=== PATIENT | female | born 1970 | race Caucasian/White ===

== ENCOUNTER 2017-03-15 12:14 | Emergency (ER) | payer BC, OTHER ==
[~2017-03-15] VITALS: Ht 160 cm; Wt 62.0 kg
[~2017-03-15 12:14] MED LIST: IBUP800T23 PO; METH750T2 PO
[2017-03-15 12:19] VITALS: BP 149/74; PULSE 99; RESP 18; TEMP 98.2; O2SAT 98
[2017-03-15] MEDS ORDERED: SODIUM CHLOR 0.9% 1000 ML INJ 1,000 ML IV ONE (12:32)
--- NOTE | 2017-03-15 12:42 | PD ---
HPI Chief Complaint: GI Complaint Time Seen by Provider: 12:24 Travel History International Travel<30 days: No Contact w/Intl Traveler<30days: No Traveled to known affect area: No History of Present Illness HPI 46-year-old female presents to the emergency department for evaluation of abdominal cramping, diarrhea that started on Monday, 2 days ago. Patient states that she was recently on antibiotics, doxycycline, for bronchitis. She stopped these antibiotics on , 6 days ago. Patient states that she ate out at a restaurant on Monday night with her . He had one large bowel movement and a lot of gas, but has not had her same symptoms. She states he has been fine since Monday night. She reports 9 bowel movements today. She denies blood in her stool. She states she will get an cramping in her upper abdomen and then will have to go to the bathroom. Patient denies any radiation of the pain. She denies any urinary symptoms. She states she has not had these symptoms before. She believes she ran a fever Monday and Monday due to chills, but did not check her temperature. She states she has not had chills today. Patient reports history of hysterectomy, appendectomy, ovarian cysts. She is not currently on any prescribed medications and has no chronic medical problems. She does report a headache, stating she has been unable to have any caffeine for the past 3 days. She also states that she has had some muscle cramps in her legs and arms. She has a decreased appetite. She states she is trying to drink watered down Gatorade, but is having difficulty due to frequent bowel movements. Patient went to [facility], urgent care, and was sent to the emergency department. She denies any history of C. difficile. [facility] Past Medical History Arthritis: Yes (spinal) Blood Disorders: No Cancer: Yes (SKIN) Cardiovascular Problems: No Diminished Hearing: No Endocrine: No Gastrointestinal Disorders: Yes (IBS S/P SIGMOIDOSCOPY DR VARGAS) Genitourinary: No Immune Disorder: No Musculoskeletal: Yes Neurologic: No Psychiatric: No Reproductive: No Respiratory: No ?: Not Ovarian Cysts: Yes Past Surgical History Appendectomy: Yes (MAY 23, 2006) Hysterectomy: Yes (NOVEMBER 21, 2005, partial) Oral Surgery: Yes Other Surgery: Yes (bilateral breast augmentation) Social History Alcohol Use: Yes (OCCAS) Tobacco Use: Yes (1/2 PACK DAY) Substance Use: No Allergies-Medications (Allergen,Severity, Reaction): Coded Allergies: doxycycline (Unverified Allergy, Severe, HALLUCINATION, 03/15/17) penicillin G (Unverified Allergy, Severe, HALLUCINATIONS, 03/15/17) Reported Meds & Prescriptions Reported Meds & Active Scripts Active Ibuprofen 800 Mg Tab 800 Mg PO TID PRN Robaxin (Methocarbamol) 750 Mg Tab 750 Mg PO QID PRN Review of Systems Except as stated in HPI: all other systems reviewed are Neg Physical Exam Narrative GENERAL: Well-nourished, well-developed female patient, ambulatory. Afebrile. SKIN: Focused skin assessment warm/dry. HEAD: Normocephalic. Atraumatic. EYES: No scleral icterus. No injection or drainage. NECK: Supple, trachea midline. No JVD or lymphadenopathy. CARDIOVASCULAR: Regular rate and rhythm without murmurs, gallops, or rubs. Bilateral radial and pedal pulses are 2+. RESPIRATORY: Breath sounds equal bilaterally. No accessory muscle use. Lungs sounds clear to auscultation. GASTROINTESTINAL: Abdomen soft, non-tender, nondistended. No abdominal tenderness to palpation. MUSCULOSKELETAL: No cyanosis, or edema. BACK: Nontender without obvious deformity. No CVA tenderness. Data Data Last Documented VS Vital Signs Date Time Temp Pulse Resp B/P (MAP) Pulse Ox O2 Delivery O2 Flow Rate FiO2 03/15/17 12:19 98.2 99 18 149/74 (99) 98 Orders Orders Complete Blood Count With Diff (03/15/17 12:32) Comprehensive Metabolic Panel (03/15/17 12:32) Urinalysis - C+S If Indicated (03/15/17 12:32) Lipase (03/15/17 12:32) Iv Access Insert/Monitor (03/15/17 12:32) Ecg Monitoring (03/15/17 12:32) Oximetry (03/15/17 12:32) Sodium Chlor 0.9% 1000 Ml Inj (Ns 1000 M (03/15/17 12:32) Sodium Chloride 0.9% Flush (Ns Flush) (03/15/17 12:45) C Diff Toxin Pcr (03/15/17 12:32) Enteric Path (Stool) (03/15/17 12:32) Prochlorperazine Inj (Compazine Inj) (03/15/17 12:45) Diphenhydramine Inj (Benadryl Inj) (03/15/17 12:45) Labs Laboratory Tests Test 03/15/17 12:47 03/15/17 13:05 Urine Collection Type CLEAN CATCH Urine Color YELLOW Urine Turbidity CLEAR Urine pH 5.5 Urine Specific [place] 1.003 Urine Protein NEG mg/dL Urine Glucose (UA) NEG mg/dL Urine Ketones NEG mg/dL Urine Occult Blood LARGE Urine Nitrite NEG Urine Bilirubin NEG Urine Leukocyte Esterase NEG Urine RBC 50-99 /hpf Urine WBC 0-2 /hpf Urine Squamous Epithelial Cells 6-8 /hpf Urine Bacteria OCC /hpf Microscopic Urinalysis Comment CULT NOT INDICATED Urine Collection Time 12:47 White Blood Count 7.5 TH/MM3 Red Blood Count 3.94 MIL/MM3 Hemoglobin 12.1 GM/DL Hematocrit 35.6 % Mean Corpuscular Volume 90.3 FL Mean Corpuscular Hemoglobin 30.6 PG Mean Corpuscular Hemoglobin Concent 33.9 % Red Cell Distribution Width 12.3 % Platelet Count 231 TH/MM3 Mean Platelet Volume 8.2 FL Neutrophils (%) (Auto) 70.2 % Lymphocytes (%) (Auto) 21.9 % Monocytes (%) (Auto) 6.5 % Eosinophils (%) (Auto) 0.4 % Basophils (%) (Auto) 1.0 % Neutrophils # (Auto) 5.3 TH/MM3 Lymphocytes # (Auto) 1.6 TH/MM3 Monocytes # (Auto) 0.5 TH/MM3 Eosinophils # (Auto) 0.0 TH/MM3 Basophils # (Auto) 0.1 TH/MM3 CBC Comment DIFF FINAL Differential Comment Blood Urea Nitrogen 9 MG/DL Creatinine 0.60 MG/DL Random Glucose 90 MG/DL Total Protein 6.9 GM/DL Albumin 3.3 GM/DL Calcium Level 8.7 MG/DL Alkaline Phosphatase 62 U/L Aspartate Amino Transf (AST/SGOT) 22 U/L Alanine Aminotransferase (ALT/SGPT) 17 U/L Total Bilirubin 0.3 MG/DL Sodium Level 133 MEQ/L Potassium Level 4.0 MEQ/L Chloride Level 100 MEQ/L Carbon Dioxide Level 25.7 MEQ/L Anion Gap 7 MEQ/L Estimat Glomerular Filtration Rate 107 ML/MIN Lipase 115 U/L MDM Medical Decision Making Medical Screen Exam Complete: Yes Emergency Medical Condition: Yes Medical Record Reviewed: Yes Differential Diagnosis Gastroenteritis versus C. difficile diarrhea versus bacterial diarrhea Narrative Course 46-year-old female presents to the emergency department for evaluation of diarrhea since Monday. She reports 9 episodes today already. She has recently been on antibiotics. Abdomen examination is benign. IV access is established. CBC, CMP, lipase, UA, stool for C-diff, enteric pathogen stool are ordered and pending. Patient is given NS 1 L IV bolus, Compazine 10 mg IV, Benadryl 25 mg IV for headache. CBC shows normal WBC 7.5, neutrophil percentage 70.2. CMP shows slight hyponatremia of 133, no acute abnormality. Lipase is 115. UA, no acute infection. On reevaluation, patient states she has not had a bowel movement since being in the emergency department. She does state that she has had 9 episodes today. Due to high risk for C. difficile, recent antibiotic use, the patient be started on Flagyl. She is instructed to follow-up with her primary care physician for reevaluation of diarrhea as well as hematuria. She verbalizes agreement. She is return here for any acute worsening of symptoms. I discussed the case with my attending physician, Dr. Browning, who agrees with plan and disposition. Diagnosis Primary Impression: Diarrhea Qualified Codes: A09 - Infectious gastroenteritis and colitis, unspecified Referrals: Primary Care Physician 2 days Patient Instructions: Acute Diarrhea (ED), General Instructions Additional Instructions: Take Flagyl as directed until gone. Do not drink any alcohol while taking this medication. Follow-up with your primary care physician for evaluation as well as for further evaluation of hematuria (blood in your urine). Drink plenty of fluids. [place] diet. Return to emergency department for any acute worsening of symptoms. Med/Other Pt SpecificInfo: Prescription(s) given Scripts Metronidazole (Flagyl) 500 Mg Tab 500 MG PO TID for Infection for 10 Days, TAB 0 Refills Prov: LuisNita HER 03/15/17 Disposition: 01 DISCHARGE HOME Condition: Stable Nita Smith Mar 15, 2017 12:42
[2017-03-15] MEDS ORDERED: diphenhydrAMINE HCL 50 MG/ML VIAL IVP ONE (12:45)
[2017-03-15] MEDS ORDERED: SODIUM CHLORIDE 0.9% FLUSH 10 ML FLUSH IVF PRN (12:45)
[2017-03-15] MEDS ORDERED: PROCHLORPERAZINE INJ 10 MG/2 ML VIAL IVP ONE (12:45)
[2017-03-15 12:52] LABS: BLOOD, URINE LARGE (NEG); GLUCOSE,URINE NEG (NEG); KETONE, URINE NEG (NEG); NITRITE,URINE NEG (NEG); PH, URINE 5.5 (5.0-8.5)
[2017-03-15 12:59] LABS: METHOD OF COLLECTION CLEAN CATCH; URINE COLOR YELLOW (YELLW/STRAW)
[2017-03-15 13:00] LABS: BACTERIA, URINE OCC /hpf; COMMENT (UR) CULT NOT INDICATED; CULTURE IF INDICATED CULT NOT INDICATED; WBC, URINE 0-2 /hpf (0-5)
[2017-03-15 13:16] LABS: AUTOMATED NEUTROPHIL # 5.3 TH/MM3 (1.8-7.7); BASOPHIL # 0.1 TH/MM3 (0-0.2); EOSINOPHIL % 0.4 % (0.0-4.0); HEMATOCRIT 35.6 % (35.0-46.0); HEMO FLAGS DIFF FINAL; LYMPH % 21.9 % (9.0-44.0); LYMPHOCYTE # 1.6 TH/MM3 (1.0-4.8); MEAN CELL VOLUME 90.3 FL (80.0-100.0); MEAN CORPUSCULAR HEMOGLOBIN 30.6 PG (27.0-34.0); MEAN CORPUSCULAR HGB CONC 33.9 % (32.0-36.0); MONO % 6.5 % (0.0-8.0); NEUT % 70.2 % (16.0-70.0); PLATELET COUNT 231 TH/MM3 (150-450); RED BLOOD COUNT 3.94 MIL/MM3 (4.00-5.30); RED CELL DISTRIBUTION WIDTH 12.3 % (11.6-17.2); WHITE BLOOD COUNT 7.5 TH/MM3 (4.0-11.0)
[2017-03-15 13:27] LABS: CHLORIDE 100 MEQ/L (98-107); SODIUM (NA) 133 MEQ/L (136-145)
[2017-03-15 13:31] LABS: ANION GAP 7 MEQ/L (5-15); BICARBONATE 25.7 MEQ/L (21.0-32.0); BLOOD UREA NITROGEN 9 MG/DL (7-18)
[2017-03-15 13:34] LABS: ALT (GPT) 17 U/L (10-53); AST (GOT) 22 U/L (15-37); GLOMERULAR FILTRATION RATE 107 ML/MIN (>89)
[2017-03-15 13:35] LABS: TOTAL BILIRUBIN ADULT 0.3 MG/DL (0.2-1.0)
[2017-03-15 13:36] LABS: ALKALINE PHOSPHATASE 62 U/L (45-117)
[2017-03-15] MEDS ORDERED: METR-1 PO (13:42)
[2017-03-15 14:18] VITALS: BP 107/64; PULSE 84; RESP 18; O2SAT 100
== END 2017-03-15 14:25 | disposition home or self-care (01) ==
LOC: PHED 12:14
DX: A09 Infectious gastroenteritis and colitis, unspecified (principal); K58.9 Irritable bowel syndrome, unspecified; M46.90 Unspecified inflammatory spondylopathy, site unspecified; F17.210 Nicotine dependence, cigarettes, uncomplicated
CPT/HCPCS: 80053; 81001; 83690; 85025; 96361; 96374; 96375; 99284; J0780; J1200; J7030